=== PATIENT | male | born 1945 | race Caucasian/White ===

== ENCOUNTER 2023-01-04 05:30 | Emergency (ER) | payer OTHER ==
[~2023-01-04] VITALS: Ht 182.9 cm; Wt 145.1 kg
[2023-01-04 05:30] VITALS: RESP 20; O2SAT 96
--- NOTE | 2023-01-04 05:30 | NUR ---
PT BIBA FULL ARREST COPRESSIONS IN PROGRESS. TAKEN TO ER BED 10. DR. ANDRADE AND RT AT BEDSIDE
--- NOTE | 2023-01-04 05:30 | NUR ---
SEE CODE SHEET FOR DOCUMENTATION. CPR IN PROGRESS
--- NOTE | 2023-01-04 05:42 | NUR ---
PATIENT PRONOUNCED BY DR. Lesley ANDRADE AT THIS TIME
--- NOTE | 2023-01-04 05:51 | NUR ---
KRISTEN WALLER CONTACTED [facility]. SPOKE WITH SHERLYN. TOLD WILL HAVE [employer] ANALYST CALL BACK
[2023-01-04 06:05] VITALS: O2SAT 96
--- NOTE | 2023-01-04 06:06 | NUR ---
PT DAUGHTER ROSCOE CALLED AND SPOKE WITH ER DR. ANDRADE
--- NOTE | 2023-01-04 06:19 | NUR ---
MESSAGED PT PCP DR. Milton SKY OF PATIENT'S
--- NOTE | 2023-01-04 06:21 | NUR ---
PT PCP DR. SKY REPLIED ACKNOWLEDGING PT'S EXPIRATION
--- NOTE | 2023-01-04 06:49 | NUR ---
JAISON GARCIA AT [facility], PT NOT A CANDIDATE FOR DONATION. #[phone]
--- NOTE | 2023-01-04 08:37 | NUR ---
SPOKE TO BLOOD BANK ORDER CONTROL CLERK'S OFFICE (WALDE[place]) AND PATIENT'S BODY IS BEING RELEASED. BLOOD BANK ORDER CONTROL CLERK .
--- NOTE | 2023-01-04 08:38 | NUR ---
INFORMED PATIENT'S DAUGHTER OF RELEASE FROM [employer], SHE DOES NOT HAVE THE INFORMATION FOR THE MORTUARY NOW BUT SHE WILL CALL BACK WHEN SHE GETS THE INFORMATION.
--- NOTE | 2023-01-04 09:41 | NUR ---
PATIENT'S BODY TRANSFERRED TO RM 130.
== END 2023-01-04 05:42 ==
LOC: MED 05:30 → EDBD 05:30 → MED 05:42
DX: I46.9 Cardiac arrest, cause unspecified (principal); F41.9 Anxiety disorder, unspecified; E11.22 Type 2 diabetes mellitus with diabetic chronic kidney disease; I12.9 Hypertensive chronic kidney disease with stage 1 through stage 4 chronic kidney disease, or unspecified chronic kidney disease; N18.9 Chronic kidney disease, unspecified; E78.5 Hyperlipidemia, unspecified; Z79.4 Long term (current) use of insulin; Z95.0 Presence of cardiac pacemaker; Z89.511 Acquired absence of right leg below knee
CPT/HCPCS: 31500; 92950; 99285